=== PATIENT | male | born 1950 | race Caucasian/White ===

== ENCOUNTER 2022-12-27 16:25 | Emergency (ER) | payer OTHER, MEDICAID ==
[~2022-12-27] VITALS: Ht 167.6 cm; Wt 136.1 kg
--- NOTE | 2022-12-27 16:25 | NUR ---
BIBA/ALS TO BED 4
[2022-12-27 16:48] VITALS: BP 122/80; RESP 20
[2022-12-27] MEDS ORDERED: ONDANSETRON 4 MG/2 ML VIAL IVP ONE (17:00)
[2022-12-27] MEDS ORDERED: NACL 0.9% 500 ML IV ONE (17:00)
[2022-12-27] MEDS ORDERED: LOPERAMIDE 2 MG CAP PO ONE (17:00)
[2022-12-27] MEDS ORDERED: HYDROcodone/APAP 10/325 MG 1 TAB TAB PO PRN (17:00)
[2022-12-27 17:10] VITALS: O2SAT 96
--- NOTE | 2022-12-27 17:10 | NUR ---
72YO MALE PT BIBA HOME C/O N/V/D-blood X2DAYS. REPORTS SUDDEN ONSET W/ DYSURIA AND BACK DISCOMFORT. DENIES HEMATURIA, FEVER, CHILLS, SOB, CHEST OR ABD PAIN. PT AAOX4, ON 4L VIA NC, NON AMB- BASELINE. HOB POSITIONED PER COMFORT. 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 BED AT LOWEST POSITION, BED RAILS UPX2. CALL LIGHT WITHIN REACH HX: HTN, HLD, COPD, CHF, DM2, [place](2019) NKA
[2022-12-27 17:26] LABS: BASOPHILS # (AUTO) 0.1 K/uL (0.00-0.22); BASOPHILS % (AUTO) 0.6 % (0.0-2.0); EOSINOPHILS % (AUTO) 0.3 % (0.0-4.0); HEMATOCRIT 42.3 % (36-52); HEMOGLOBIN 13.7 g/dL (12.0-18.0); LYMPHOCYTES # (AUTO) 2.1 K/uL (2.0-11.5); LYMPHOCYTES % (AUTO) 14.5 % (20.5-51.1); MEAN CORPUSCULAR HEMOGLOBIN 27 pg (27-31); MEAN CORPUSCULAR HGB CONC 32 g/dL (33-37); MEAN CORPUSCULAR VOLUME 84.3 fL (80-94); MONOCYTES # (AUTO) 0.9 K/uL (0.8-1.0); MONOCYTES % (AUTO) 6.5 % (1.7-9.3); NEUTROPHILS % (AUTO) 78.1 % (42.2-75.2); PLATELET COUNT (AUTO) 317 K/uL (140-450); RED BLOOD CELL COUNT(AUTO) 5.02 MIL/uL (4.20-6.10); RED CELL DISTRIBUTION WIDTH 16.1 % (11.6-13.7); WHITE BLOOD COUNT (AUTO) 14.1 K/uL (4.8-10.8)
[2022-12-27 17:41] LABS: PROTHROMBIN TIME 10.9 secs (10.8-13.4)
[2022-12-27 17:42] LABS: ALBUMIN 3.2 g/dL (3.4-5.0); ANION GAP 17.1 (8-16); ASPARTATE AMINOTRANSFERASE 13 U/L (15-37); CARBON DIOXIDE 24.3 mmol/L (21-32); CHLORIDE 100 mmol/L (98-107); CREATININE 0.9 mg/dL (0.6-1.3); GLUCOSE 168 mg/dL (74-106); POTASSIUM 3.4 mmol/L (3.5-5.1); SODIUM SERUM 138 mmol/L (136-145); TOTAL BILIRUBIN 0.6 mg/dL (0.0-1.0); UREA NITROGEN, BLOOD 18 mg/dL (7-18)
[2022-12-27 17:44] LABS: LIPASE 41 U/L (73-393)
--- NOTE | 2022-12-27 17:51 | NUR ---
xray at bedside
[2022-12-27] MEDS ORDERED: ACET-5629 PO (18:40)
[2022-12-27] MEDS ORDERED: FURO-572 PO (18:40)
[2022-12-27] MEDS ORDERED: LOPE1TAB14 PO (18:41)
[2022-12-27] MEDS ORDERED: LOPERAMIDE 2 MG CAP ONE (18:45)
[2022-12-27] MEDS ORDERED: ONDA-188 PO (18:50)
--- NOTE | 2022-12-27 19:00 | NUR ---
The patient's care was reviewed and supervised by CRISSY MULLIGAN RN.
--- NOTE | 2022-12-27 19:22 | NUR ---
REPORT GIVEN TO ANAEBLLA BALDWIN. TRANSFER OF CARE AT THIS TIME
--- NOTE | 2022-12-27 19:50 | NUR ---
FIRST CONTACT WITH PT. ASSESSMENT COMPLETED. AWAITING DISPO.
--- NOTE | 2022-12-27 21:00 | NUR ---
PT CURRENTLY DISCHARGED BUT UNABLE TO SECURE TRANSPORT BACK HOME. CHARGE NURSING WORKING WITH FAMILY TO SECURE RIDE HOME.
--- NOTE | 2022-12-28 | NUR ---
Patient discharged with v/s stable. Written and verbal after care instructions given and explained. Patient verbalized understanding. Wheel Chair Assisted with to home UBER RIDE SET UP FOR PT. All questions addressed prior to discharge. Advised to follow up with PMD.
[2022-12-28 00:01] VITALS: BP 133/84; PULSE 78; RESP 20; TEMP 98.3; O2SAT 95
== END 2022-12-28 | disposition home or self-care (01) ==
LOC: MED 16:25
DX: A08.4 Viral intestinal infection, unspecified (principal); I50.9 Heart failure, unspecified; R53.1 Weakness; M25.561 Pain in right knee; M54.50 Low back pain, unspecified; E87.6 Hypokalemia; I48.91 Unspecified atrial fibrillation; J44.9 Chronic obstructive pulmonary disease, unspecified; E11.9 Type 2 diabetes mellitus without complications; Z79.899 Other long term (current) drug therapy; Z79.4 Long term (current) use of insulin
CPT/HCPCS: 36415; 71045; 74018; 80053; 82550; 82553; 83605; 83690; 83880; 84484; 85025; 85610; 85730; 93005; 96374; 99285; J2405; J7030